=== PATIENT | male | born 1955 | race Caucasian/White ===

== ENCOUNTER 2020-03-24 00:26 | Outpatient (CLI) | payer OTHER, SELFPAY ==
[2020-03-24 21:18] LABS: SARS-CoV-2 RNA PCR Negative
== END 2020-03-24 00:27 | disposition home or self-care (01) ==
LOC: ANHCOVIDDT 00:27
PROVIDERS: PCP Family Medicine; Visit Provider Internal Medicine Gastroenterology
DX: Z01.812 Encounter for preprocedural laboratory examination (principal); Z20.828 Contact with and (suspected) exposure to other viral communicable diseases
CPT/HCPCS: 87635; C9803; U0003

== ENCOUNTER 2020-03-27 00:09 | Day surgery (SDC) | payer OTHER, SELFPAY ==
[2020-03-20 15:07] VITALS: BMI 26.5
--- NOTE | 2020-03-26 11:49 | P.PNAN_ITS ---
Anes - Initial Pre Proc Eval Procedure: Operation Date: 03/27/20 08:00 Proposed Procedures p Screening Colonoscopy - Jesus Sanchez MD Date/Time: 03/26/20 11:49 Surgeon: Jesus Sanchez MD Pre Op Diagnosis: Neoplasm Screening/ Hx Colon Polyps Patient Data Age: 64 Gender: M Height: 1.78 m Weight: 84 kg Allergies Allergy/AdvReac Type Severity Reaction Status Date / Time Penicillins Allergy Mild Unknown Verified 03/27/20 07:05 Home Medications Medication Instructions Recorded Confirmed Type allopurinol 300 mg tablet 300 mg PO DAILY 05/26/19 03/20/20 History amlodipine 2.5 mg tablet 2.5 mg PO DAILY #90 tablet 12/20/19 03/20/20 Rx lisinopril 20 1 tablet PO DAILY #90 tablet 12/20/19 03/20/20 Rx mg-hydrochlorothiazide 12.5 mg tablet metformin 500 mg tablet 500 mg PO BID #180 tablet 12/20/19 03/20/20 Rx simvastatin 10 mg tablet 10 mg PO DAILY #90 tablet 12/20/19 03/20/20 Rx Patient hx anesthesia problems: none Family hx anesthesia problems: none [facility] Past Medical History Medical History (Updated 03/27/20 @ 07:06 by Bernabe Jean DO) Asthma Essential (primary) hypertension Mixed hyperlipidemia Palpitations Type 2 diabetes mellitus without complications Surgical History Surgical History History of arthroscopy of knee Family History Family History Other No family history of cardiovascular disease Social History Social History Smoking status: Never smoker Alcohol intake: current Living arrangements: with family Gender identity (if verbalized by the patient): Male Spiritual care concerns: No Anes - Eval Final PreProcedure Day of Procedure 03/26/20 11:49 Patient weight: overweight Heart: regular rate and rhythm Lungs: clear to auscultation and normal air movement Airway: Mallampati scale class II Neurological: alert and oriented Last oral intake: >/= 8 hours ASA classification: III Emergent: no Anesthetic plan: proceed Anesthesia type and monitoring: general GIVS and standard monitoring Informed Consent: The patient's anesthetic plan and its attendant risks and benefits were discussed with the patient/family/POA. Questions were solicited and answers provided to the satisfaction of the patient/family/POA.
[2020-03-27 07:05] LABS: Glucose Point of Care 133 (65-105)
[2020-03-27 07:06] VITALS: BP 153/86; PULSE 72; RESP 16; TEMP 36.2; O2SAT 100; BMI 27.1
[2020-03-27] MEDS: LACTATED RINGERS 1,000 ML 150 ML IV CONT (07:11)
--- NOTE | 2020-03-27 07:51 | WPDGICN ---
Assessment and Plan Assessment and plan (1) Encounter for screening colonoscopy: Code(s): Z12.11 - Encounter for screening for malignant neoplasm of colon Status: Acute Assessment and Plan: plan is for screening colonoscopy. There is a concern is father may have had colon cancer. High fiber supplements are encourage for this patient GI Consult Note Consult date/time: 03/27/20 07:51 HPI: Andrew Long is a 64 year old male Presents for screening colonoscopy. Patient states that his weight appetite bowel movements are normal. Denies any abdominal pain. He has had no bleeding. Patient does have a past history of a diminutive sigmoid colon polyp fulgurated 10 years ago. Family history is significant his brother had ulcerative colitis and required partial colectomy. His father had cancer that involved both the liver and the colon. Review of Systems Review of Systems: All systems reviewed & are unremarkable except as noted in HPI and below PMFSH Past Medical History Medical History (Updated 03/27/20 @ 07:54 by Jesus Sanchez MD) Asthma Essential (primary) hypertension Mixed hyperlipidemia Palpitations Type 2 diabetes mellitus without complications Surgical History Surgical History History of arthroscopy of knee Family History Family History Other No family history of cardiovascular disease Social History Social History Smoking status: Never smoker Alcohol intake: current Living arrangements: with family Gender identity (if verbalized by the patient): Male Spiritual care concerns: No Meds Home Medications and Allergies Home Medications Medication Instructions Recorded Confirmed Type allopurinol 300 mg tablet 300 mg PO DAILY 05/26/19 03/20/20 History amlodipine 2.5 mg tablet 2.5 mg PO DAILY #90 tablet 12/20/19 03/20/20 Rx lisinopril 20 1 tablet PO DAILY #90 tablet 12/20/19 03/20/20 Rx mg-hydrochlorothiazide 12.5 mg tablet metformin 500 mg tablet 500 mg PO BID #180 tablet 12/20/19 03/20/20 Rx simvastatin 10 mg tablet 10 mg PO DAILY #90 tablet 12/20/19 03/20/20 Rx Allergies Allergy/AdvReac Type Severity Reaction Status Date / Time Penicillins Allergy Mild Unknown Verified 03/27/20 07:05 Vital Signs Vital Signs - 24 hr 03/27/20 07:06 Temperature 97.2 F L Pulse Rate 72 Respiratory Rate 16 Blood Pressure 153/86 H Pulse Oximetry 100 Exam Narrative: Exam Narrative: Physical exam reveals patient to be alert. Vital signs stable. HEENT exam unremarkable. Lungs are clear to auscultation and percussion. Heart is without murmur or extra sounds. Abdominal exam bowel sounds are present soft nontender with no organomegaly. Digital external rectal exam is normal
[2020-03-27 08:22] VITALS: BP 129/84; PULSE 74; RESP 22; O2SAT 99
[2020-03-27 08:32] VITALS: BP 127/90; PULSE 74; RESP 17; O2SAT 99
[2020-03-27 08:41] VITALS: BP 137/89; PULSE 73; RESP 17; O2SAT 96
== END 2020-03-27 08:50 | disposition home or self-care (01) ==
PROVIDERS: PCP Family Medicine; Visit Provider Internal Medicine Gastroenterology
PROC: 0DJD8ZZ Inspection of Lower Intestinal Tract, Via Natural or Artificial Opening Endoscopic (ICD-10-PCS; CPT 45378; principal; 2020-03-27 08:00)
DX: Z12.11 Encounter for screening for malignant neoplasm of colon (principal); K63.5 Polyp of colon; K64.8 Other hemorrhoids; I10 Essential (primary) hypertension; E78.5 Hyperlipidemia, unspecified; J45.909 Unspecified asthma, uncomplicated; E11.9 Type 2 diabetes mellitus without complications; Z79.84 Long term (current) use of oral hypoglycemic drugs
CPT/HCPCS: 45385; 88305; J2704; J7120

== ENCOUNTER 2020-11-11 01:51 | Emergency (ER) | payer MEDICARE, SELFPAY ==
--- NOTE | ~2020-11-11 | CT_ITS ---
EXAMINATION: CT abdomen pelvis wo con DATE: 11/11/2020 02:43 INDICATION: Right flank pain TECHNIQUE: Computed tomography (CT) of the abdomen and pelvis was performed without intravenous contr ast. The dose-length product (DLP) was 261.46 mGy-cm. Automated exposure control and iterative recons truction technique were employed. COMPARISON: None FINDINGS: Minimal dependent atelectasis is present in the lung bases. The heart size is normal. There is an 8 mm cyst of the left hepatic lobe. The spleen, pancreas, gallbladder, and adrenal glands are normal. There is a 3 mm stone of the right mid ureter which causes mild right hydroureteronephrosis. There are two nonobstructing stones of the right kidney which measure 3 mm. There is a 1.7 cm exophyt ic cyst of the right kidney. There is a 7 mm cyst of the left kidney upper pole. No pathologically en larged abdominal or pelvic lymph nodes are identified. There is no free intraperitoneal gas or eviden ce of bowel obstruction. The appendix is normal. There is a small fat-containing umbilical hernia. Se azeem spondylosis is noted in the L5-S1. IMPRESSION: 1. 3 mm stone of the right mid ureter causing mild right hydroureteronephrosis. 2. Nonobstructing right nephrolithiasis. Reviewed, dictated and finalized at location A.
[2020-11-11 01:54] VITALS: BP 207/87; PULSE 60; RESP 18; TEMP 36.5; O2SAT 99
[2020-11-11] MEDS: SODIUM CHLORIDE 0.9% IV 1,000 ML 999 ML IV CONT (02:26)
[2020-11-11] MEDS: ONDANSETRON INJ 4 MG/2 ML VIAL IV PUSH (02:26)
[2020-11-11] MEDS: KETOROLAC 30 MG/ML VIAL (*BKC) IV PUSH (02:26)
[2020-11-11] MEDS: MORPHINE SULFATE (*CRX) 4 MG/ML INJ IV PUSH (03:52)
--- NOTE | 2020-11-11 03:59 | PC.NURSE ---
Patient aware of need for urine specimen. Patient attempting at this time.
[2020-11-11 04:06] VITALS: BP 155/77; PULSE 66; RESP 18; O2SAT 97
[2020-11-11 04:40] LABS: Add Urine Microscopic? YES; Appearance Urine Cloudy (Clear); Bilirubin Urine Negative (Negative); Blood Urine 3+ (Negative); Color Urine Yellow (Yellow); Glucose Urine UA Negative (Negative); Ketones Urine Trace mg/dL (Negative); Leukocyte Esterase Ur Negative LEU/UL (Negative); Mucus Urine Rare /lpf; Nitrate Urine Negative (Negative); Protein Urine 1+ mg/dL (Negative); RBC Urine >75 /hpf (0-2); Specific Grav Ur 1.023 (1.001-1.035); Squamous Epithelial Cell Urine Rare /hpf (Few); Urobilinogen Urine Negative mg/dL (<2.0); WBC Urine 0-3 /hpf
--- NOTE | 2020-11-11 04:52 | ED.GENADULT ---
HPI - General Adult General Chief complaint: Abdominal Pain Stated complaint: lower back pain, abd pain Time Seen by Provider: 11/11/20 01:54 History of Present Illness HPI narrative: Patient is a 65-year-old male who presents ER with right-sided flank pain. Wrapping around his abdomen and going into his testicle. Mild nausea and some sweats. Urinary frequency noted. No history of kidney stone. Related Data Allergies Allergy/AdvReac Type Severity Reaction Status Date / Time Penicillins Allergy Mild Unknown Verified 11/11/20 01:59 Review of Systems Review of Systems: All systems reviewed & are unremarkable except as noted in HPI and below Gastrointestinal: Gastrointestinal: Reports abdominal pain and Reports nausea Genitourinary: Genitourinary: Denies hematuria, Denies dysuria and Reports urinary frequency Comments: Flank pain PMFSH Past Medical History Medical History Asthma Essential (primary) hypertension Mixed hyperlipidemia Palpitations Type 2 diabetes mellitus without complications Surgical History Surgical History History of arthroscopy of knee Family History Family History Other No family history of cardiovascular disease Social History Social History Alcohol intake: current Gender identity (if verbalized by the patient): Male Spiritual care concerns: No Exam Narrative: Exam Narrative: GENERAL: Well-appearing, well-nourished, and in no acute distress. HEAD: Normocephalic, atraumatic. ENT: Mucous membranes moist. CHEST: Clear to auscultation. No respiratory distress. HEART: Regular rate and rhythm. Normal peripheral pulses. ABDOMEN: Soft, nontender, nondistended. EXTREMITIES: Normal range of motion. No edema. SKIN: Warm, dry, no rash. NEURO: Alert and oriented x3. PSYCH: Normal mood and affect. Course Course Emergency Course: Patient improving with Toradol and morphine. Informed results. Discharge home. Vital Signs Vital signs: Vital Signs Temperature 97.7 F 11/11/20 01:54 Pulse Rate 60 11/11/20 01:54 Respiratory Rate 18 11/11/20 01:54 Blood Pressure 207/87 H 11/11/20 01:54 Pulse Oximetry 99 11/11/20 01:54 Temperature 97.7 F 11/11/20 01:54 Pulse Rate 66 11/11/20 04:06 Respiratory Rate 18 11/11/20 04:06 Blood Pressure 155/77 H 11/11/20 04:06 Pulse Oximetry 97 11/11/20 04:06 Medical Decision Making Vital Signs Vital Signs: Vital Signs Temperature 97.7 F 11/11/20 01:54 Pulse Rate 60 11/11/20 01:54 Respiratory Rate 18 11/11/20 01:54 Blood Pressure 207/87 H 11/11/20 01:54 Pulse Oximetry 99 11/11/20 01:54 Temperature 97.7 F 11/11/20 01:54 Pulse Rate 66 11/11/20 04:06 Respiratory Rate 18 11/11/20 04:06 Blood Pressure 155/77 H 11/11/20 04:06 Pulse Oximetry 97 11/11/20 04:06 Lab Data Labs: Lab Results 11/11/20 Range/Units 04:06 Urine Color Yellow (Yellow) Urine Appearance Cloudy H (Clear) Urine pH 5.0 (5.0-9.0) Ur Specific Taylor 1.023 (1.001-1.035) Urine Protein 1+ H (Negative) mg/dL Urine Glucose (UA) Negative (Negative) mg/dL Urine Ketones Trace (Negative) mg/dL Ur Blood (Man) 3+ H (Negative) Urine Nitrate Negative (Negative) Urine Bilirubin Negative (Negative) Urine Urobilinogen Negative (<2.0) mg/dL Leukocyte Esterase Rfl Negative (Negative) JOSE E/UL Urine RBC >75 H (0-2) /hpf Urine WBC 0-3 /hpf Ur Squamous Epith Cells Rare (Few) /hpf Hyaline Casts 3-4 H (None) /lpf Urine Mucus Rare /lpf Imaging Data Radiologist's impression: CT abdomen pelvis without contrast: 4 mm calculus in the mid right ureter. Discharge Plan Discharge Clinical Impression: Ureterolithiasis Patient Disposition: Home, Self
== END 2020-11-11 05:07 | disposition home or self-care (01) ==
PROVIDERS: Emergency Provider Emergency Medicine; PCP Family Medicine
DX: N20.1 Calculus of ureter (principal); J45.909 Unspecified asthma, uncomplicated; I10 Essential (primary) hypertension; E78.5 Hyperlipidemia, unspecified; E11.9 Type 2 diabetes mellitus without complications
CPT/HCPCS: 74176; 81001; 96361; 96374; 96375; 99284; J1885; J2270; J2405; J7030

== ENCOUNTER → 2022-04-08 11:11 | Outpatient (CLI) | payer MEDICARE, SELFPAY ==
--- NOTE | ~2022-04-08 | XR_ITS ---
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 RESULT: Lines, tubes, and devices: None. Lungs and pleura: Clear. Cardiomediastinal silhouette: Stable. Other: No acute osseous or upper abdominal finding. IMPRESSION: No acute cardiopulmonary process. Reviewed, dictated and finalized at location K. DRYING MACHINE OPERATOR
== END ==
PROVIDERS: PCP Family Medicine; Visit Provider Family Medicine
DX: J45.909 Unspecified asthma, uncomplicated (principal)
CPT/HCPCS: 71046

== ENCOUNTER 2022-11-18 13:41 | Outpatient (CLI) | payer MEDICARE, SELFPAY ==
--- NOTE | ~2022-11-18 | XR_ITS ---
EXAMINATION: XR lumbar spine min 4V DATE: 11/18/2022 13:56 INDICATION: Low back pain TECHNIQUE: Anteroposterior, lateral, and bilateral oblique views of the lumbar spine, and cone-down l ateral view of the lumbosacral junction were obtained. COMPARISON: None. FINDINGS: There are 3 mm of anterolisthesis of L4 on L5. The vertebral body heights are maintained. S mall degenerative osteophytes project from the anterior endplates of multiple vertebral bodies. There is no fracture. There is moderate facet joint osteoarthritis of the lower lumbar spine. There is mod erate loss of intervertebral disc space height at L5-S1. IMPRESSION: 1. Mild to moderate lumbar spondylosis without acute findings. Reviewed, dictated and finalized at location L.
== END 2022-11-18 13:42 ==
PROVIDERS: PCP Family Medicine; Visit Provider Family Medicine
DX: M54.50 Low back pain, unspecified (principal); M54.30 Sciatica, unspecified side; M43.06 Spondylolysis, lumbar region
CPT/HCPCS: 72110

== ENCOUNTER 2023-04-13 13:09 | Emergency (ER) | payer MEDICARE, SELFPAY ==
--- NOTE | 2023-04-13 13:11 | ED.UPPEXIN ---
HPI - Extremity Injury (Upper) General Chief Complaint: Extremity Injury, Upper Stated Complaint: Shoulder pain Time Seen by Provider: 04/13/23 13:11 Source: patient Mode of arrival: ambulatory Limitations: no limitations History of Present Illness HPI narrative: Patient is a 67-year-old male who presents with left shoulder pain after doing yard work 4 days ago. Patient states he he had not done a lot of physical labor in several weeks prior. Patient reports pain is worse in the morning and has been taking ibuprofen and Flexeril with moderate relief. Patient reports increased pain with internal rotation. Denies any weakness, numbness, tingling. Patient still able to lift arm straight up. Related Data Allergies Allergy/AdvReac Type Severity Reaction Status Date / Time Penicillins Allergy Mild Unknown Verified 04/13/23 13:21 Review of Systems Review of Systems: All systems reviewed & are unremarkable except as noted in HPI and below Constitutional: Constitutional: Denies body ache(s), Denies chills, Denies fatigue, Denies fever(s), Denies headache(s), Denies malaise and Denies weakness Eyes: Eyes: Denies blurry vision, Denies irritation and Denies loss of vision ENT: Denies otalgia, Denies headache(s), Denies nasal discharge, Denies sinus pain and Denies sore throat Cardiovascular: Cardiovascular: Denies chest pain, Denies irregular heart rhythm and Denies dyspnea Respiratory: Respiratory: Denies dyspnea Gastrointestinal: Gastrointestinal: Denies abdominal pain, Denies melena, Denies hematochezia, Denies diarrhea, Denies nausea and Denies vomiting Musculoskeletal: Musculoskeletal: Denies back pain, Denies myalgias and Reports arthralgias Integumentary/Breasts: Skin/Breast: Denies pruritus and Denies rash Neurologic: Denies headache(s), Denies loss of vision and Denies weakness Psychiatric: Psychiatric: Reports no additional psychiatric complaints Endocrine: Endocrine: Denies fatigue PMFSH Past Medical History Medical History Asthma Essential (primary) hypertension Mixed hyperlipidemia Palpitations Type 2 diabetes mellitus without complications Surgical History Surgical History History of arthroscopy of knee Family History Family History Other No family history of cardiovascular disease Social History Social History Smoking status: Never smoker Alcohol intake: current Substance use: never Substance use type: does not use Lack of Transportation: No Lack of Food: Never True Current Housing: I Have Housing Concerned About Future Housing: No Difficulty Paying Gas/Electric Bills: No Difficulty Paying for Meds: No Currently Unemployed: No Education: Associate Degree Difficulty w/ Childcare or Family Care: No Living arrangements: with family Gender identity (if verbalized by the patient): Male Spiritual care concerns: No Comments At time of signature, agree with nursing past medical, surgical, social and family history. There is no relevant family history pertinent to the presenting complaint. Exam Const: General: cooperative, healthy appearing, comfortable, no acute distress and well nourished Nutritional Appearance: well nourished Orientation/consciousness: patient oriented x3 Limitations: no limitations HENMT: Head: normal to inspection, normocephalic and atraumatic Ears: hearing grossly normal bilaterally and external ears normal Face/Nose/Sinus: Normal external nose present, normal facial exam and face symmetric Face and sinus: normal facial exam and face symmetric Mouth: Yes lip normal Eyes: General: appearance normal, both eyes and all related structures Alignment and Position: alignment normal and position normal Periorbital: periorbital fin
[2023-04-13 13:23] VITALS: BP 166/82; PULSE 83; RESP 16; TEMP 36.6; O2SAT 100
== END 2023-04-13 13:34 | disposition home or self-care (01) ==
PROVIDERS: Emergency Provider Nurse Practitioner Family; PCP Family Medicine
DX: M75.52 Bursitis of left shoulder (principal); J45.909 Unspecified asthma, uncomplicated; I10 Essential (primary) hypertension; E78.2 Mixed hyperlipidemia; E11.9 Type 2 diabetes mellitus without complications
CPT/HCPCS: 99213; G0463

== ENCOUNTER 2023-10-06 08:27 | Outpatient (CLI) | payer MEDICARE, SELFPAY ==
--- NOTE | 2023-10-06 08:35 | EST_ITS ---
Patient Info Name: Andrew Long Age: 68 years : 1955 Gender: Male Ht: 70 in Wt: 184 lbs BSA: 2.04 m2 HR: 72 bpm BP: 161 / 86 mmHg Heart Rhythm: Sinus Rhythm Exam Date: 10/06/2023 8:57 AM Exam Location: [facility] Patient Status: Outpatient Admit Date: 10/06/2023 Staff Ordering Physician: Karen Le Attending Provider: Karen Le Exercise Technologist: Dalia Ventura CT Exercise Physician: Heath Martínez DO Exam Type: CA stress test treadmill Study Info Indications R07.89 - Other chest pain A treadmill exercise stress test was performed. Summary 1. 1. Abnormal Mitch exercise stress test for ischemic ST changes by ECG criteria. 2. 2. Reduced functional capacity, achieving 7 METs of workload. 3. 3. Baseline hypertension with hypertensive response to exercise. 4. 4. Appropriate HR response to exercise. 5. 5. Appropriate HR recovery at 1 minute post exercise. 6. 6. No imaging with stress testing. 7. 7. Patient informed of the above results. 8. 8. PCP informed of the results. Protocol: Mitch Stress ECG Details Stage: REST Duration (min): 7 min : 22 sec Speed (mph): 0.0 Grade (%): 0 HR (bpm): 74 SBP (mmHg): 161 DBP (mmHg): 86 METS: --- Stage: REST Duration (min): 13 min : 18 sec Speed (mph): 0.0 Grade (%): 0 HR (bpm): 74 SBP (mmHg): 161 DBP (mmHg): 86 METS: --- Stage: STAGE 1 Duration (min): 1 min : 0 sec Speed (mph): 1.7 Grade (%): 10 HR (bpm): 104 SBP (mmHg): 161 DBP (mmHg): 86 METS: --- Stage: STAGE 1 Duration (min): 2 min : 0 sec Speed (mph): 1.7 Grade (%): 10 HR (bpm): 117 SBP (mmHg): 161 DBP (mmHg): 86 METS: --- Stage: STAGE 1 Duration (min): 3 min : 0 sec Speed (mph): 1.7 Grade (%): 10 HR (bpm): 117 SBP (mmHg): 211 DBP (mmHg): 75 METS: --- Stage: STAGE 2 Duration (min): 1 min : 0 sec Speed (mph): 2.5 Grade (%): 12 HR (bpm): 123 SBP (mmHg): 211 DBP (mmHg): 75 METS: --- Stage: STAGE 2 Duration (min): 2 min : 0 sec Speed (mph): 2.5 Grade (%): 12 HR (bpm): 129 SBP (mmHg): 222 DBP (mmHg): 74 METS: --- Stage: STAGE 2 Duration (min): 2 min : 6 sec Speed (mph): 2.5 Grade (%): 12 HR (bpm): 130 SBP (mmHg): 222 DBP (mmHg): 74 METS: --- Stage: RECOVERY Duration (min): 0 min : 53 sec Speed (mph): 0.0 Grade (%): 0 HR (bpm): 120 SBP (mmHg): 222 DBP (mmHg): 74 METS: --- Stage: RECOVERY Duration (min): 1 min : 53 sec Speed (mph): 0.0 Grade (%): 0 HR (bpm): 106 SBP (mmHg): 222 DBP (mmHg): 74 METS: --- Stage: RECOVERY Duration (min): 2 min : 53 sec Speed (mph): 0.0 Grade (%): 0 HR (bpm): 97 SBP (mmHg): 215 DBP (mmHg): 80 METS: --- Stage: RECOVERY Duration (min): 3 min : 53 sec Speed (mph): 0.0 Grade (%): 0 HR (bpm): 90 SBP (mmHg): 215 DBP (mmHg): 80 METS: --- Stage: RECOVERY Duration (min): 4 min
== END 2023-10-06 08:28 | disposition home or self-care (01) ==
LOC: ANHCARD 08:27
PROVIDERS: PCP Family Medicine; Visit Provider Nurse Practitioner
DX: R07.9 Chest pain, unspecified (principal)
CPT/HCPCS: 93017

== ENCOUNTER 2024-02-05 10:16 | Outpatient (CLI) | payer MEDICARE, SELFPAY ==
[2024-02-05 13:50] LABS: Basophils Absolute Auto 0.1 K/mm3 (0.0-0.1); Basophils Percent Auto 1.1 % (0.2-1.2); Eosinophils Absolute Auto 0.3 K/mm3 (0-0.3); Eosinophils Percent Auto 3.1 % (0-4.4); Hematocrit 43.1 % (42.0-52.0); Hemoglobin 12.2 g/dL (14.0-18.0); Immature Granulocyte Absolute 0.07 K/mm3 (0.00-0.031); Immature Granulocyte Percent A 0.8 % (0-0.5); Lymphocytes Absolute Auto 1.64 K/mm3 (0.9-3.2); Lymphocytes Percent Auto 18.8 % (18.3-44.2); Mean Corpuscular HGB Conc 28.3 g/dl (32-36); Mean Corpuscular Hemoglobin 19.7 pg (26-34); Mean Corpuscular Volume 69.5 fl (80-100); Mean Platelet Volume 9.3 fl (7.4-10.4); Monocytes Percent Auto 10.9 % (2.6-8.5); Neutrophils Absolute Auto 5.7 K/mm3 (1.3-6.7); Neutrophils Percent Auto 65.3 % (45.5-73.1); Platelet Count Result 445 k/mm3 (150-375); Red Cell Distribution Width 19.9 % (11.5-14.5); White Blood Count 8.7 K/mm3 (4.5-10.0)
[2024-02-05 14:21] LABS: Alanine Aminotransferase 29 U/L (6-50); Albumin Level 4.6 g/dL (3.5-5.1); Alkaline Phosphatase 91 U/L (38-126); Anion Gap 11 mmol/L (4-12); Aspartate Amino Transferase 74 U/L (17-59); Bilirubin,Total 0.5 mg/dL (0.2-1.3); Blood Urea Nitrogen 23 mg/dL (9-20); Calcium 9.7 mg/dL (8.4-10.2); Carbon Dioxide 27 mmol/L (22-30); Chloride 100 mmol/L (98-107); Cholesterol 93 mg/dL (0-200); Estimated Glomerular Filt Rate > 60; Glucose 112 mg/dL (65-110); HDL Direct 44 mg/dL; Potassium 4.6 mmol/L (3.4-5.0); Sodium 138 mmol/L (137-145); Triglycerides 108 mg/dL (<150)
[2024-02-05 14:40] LABS: Platelet Estimate Adequate (Adequate)
[2024-02-05 14:41] LABS: Anisocytosis 1+; Hypochromasia 1+; Ovalocytes 1+; Poikilocytosis 1+; Schistocytes Rare
[2024-02-05 14:47] LABS: LDL Cholesterol Direct < 30 mg/dL
[2024-02-05 14:59] LABS: Hemoglobin A1C 6.9 % (<5.7)
== END 2024-02-05 10:17 | disposition home or self-care (01) ==
PROVIDERS: PCP Family Medicine; Visit Provider Student in an Organized Health Care Education/Training Program
DX: E11.9 Type 2 diabetes mellitus without complications (principal)
CPT/HCPCS: 36415; 80053; 80061; 83036; 84443; 85025

== ENCOUNTER 2024-02-11 10:39 | Outpatient (CLI) | payer MEDICARE, SELFPAY ==
--- NOTE | ~2024-02-11 | XR_ITS ---
XR cervical spine min 6V Ordering provider: Leighann Wright DO History: . No injury, posterior neck pain since 11-28-23 . Comparison: None. FINDINGS: VERTEBRAL BODIES: Normal height and alignment. No visible fracture or subluxation. The dens is intact . Degenerative changes of the spine. DISK SPACES: Narrowing of all the disc spaces in the cervical area. Multilevel facet joint disease. M ultilevel uncovertebral joint osteoarthritic changes. PARASPINOUS SOFT TISSUES: No prevertebral soft tissue swelling. IMPRESSION: No acute osseous abnormality cervical spine. Multilevel degenerative disc disease. Reviewed, dictated and finalized at location A.
== END 2024-02-11 10:40 | disposition home or self-care (01) ==
PROVIDERS: PCP Family Medicine; Visit Provider Family Medicine
DX: M54.2 Cervicalgia (principal)
CPT/HCPCS: 72052

== ENCOUNTER 2024-03-22 09:12 | Emergency (ER) | payer MEDICARE, SELFPAY ==
--- NOTE | 2024-03-22 09:23 | ED.WOUNDLAC ---
HPI - Wound/Laceration General Chief Complaint: Animal Bite Stated Complaint: dog bite/ rt hand Time Seen by Provider: 03/22/24 09:38 Source: patient and RN notes reviewed Mode of arrival: ambulatory Limitations: no limitations History of Present Illness HPI narrative: 60-year-old male presents with concern for a dog bite to his right hand, 2nd digit. Reports his dog bit him this morning. He is up-to-date on his tetanus vaccination, he recently had open heart surgery the last 2 months. Related Data Home Medications Medication Instructions Recorded Confirmed allopurinol 300 mg tablet 300 mg PO DAILY 10/06/23 03/22/24 atorvastatin 40 mg tablet 40 mg PO DAILY 10/26/23 03/22/24 carvedilol 3.125 mg tablet 3.125 mg PO DAILY 02/11/24 03/22/24 aspirin 81 mg capsule 81 mg PO DAILY 03/22/24 03/22/24 Allergies Allergy/AdvReac Type Severity Reaction Status Date / Time Penicillins Allergy Mild Unknown Verified 03/22/24 09:30 Review of Systems Review of Systems: CONSTITUTIONAL: Denies malaise, chills, sweats, or fever. SKIN: Reports laceration to 2nd digit of the right hand MUSCULOSKELETAL: Denies muscle skeletal pain NEUROLOGIC: Denies numbness, weakness All systems reviewed & are unremarkable except as noted in HPI and below PMFSH Past Medical History Medical History Asthma Essential (primary) hypertension Mixed hyperlipidemia Palpitations Type 2 diabetes mellitus without complications Surgical History Surgical History History of arthroscopy of knee Family History Family History Father Hypertension Acute myocardial infarction High cholesterol Cancer Heart disease Sibling Hypertension Acute myocardial infarction Diabetes mellitus High cholesterol Cancer Heart disease Other No family history of cardiovascular disease Social History Social History Smoking status: Never smoker Second hand tobacco smoke exposure: No Alcohol intake: current Substance use: never Substance use type: does not use Lack of Transportation: No Lack of Food: Never True Current Housing: I Have Housing Concerned About Future Housing: No Difficulty Paying Gas/Electric Bills: No Difficulty Paying for Meds: No Currently Unemployed: No Education: Associate Degree Difficulty w/ Childcare or Family Care: No Living arrangements: with family Gender identity (if verbalized by the patient): Male Spiritual care concerns: No Comments At time of signature, agree with nursing past medical, surgical, social and family history. There is no relevant family history pertinent to the presenting complaint Exam Narrative: GENERAL: Well-appearing, well-nourished, and in no acute distress. HEAD: Normocephalic, atraumatic. EYES: PERRLA, conjunctivae clear, and EOMI. ENT: Mucous membranes moist. NECK: Supple. CHEST: Clear to auscultation. No respiratory distress. HEART: Regular rate and rhythm. SKIN: Warm, dry. 1 cm laceration into the subcutaneous tissue noted to the palmar aspect of the foot 2nd digit of the right hand, 1.5 cm laceration into subcutaneous tissue noted to the lateral distal aspect of the 2nd digit of the right hand MUSC: 2nd digit of the right hand has normal strength, sensation, range of motion NEURO: Alert and oriented x3. PSYCH: Normal mood and affect Course Course Emergency Course: Patient is aware of diagnosis, understands and agrees to treatment plan. Anticipatory guidance given. Patient agrees to follow-up as directed and is aware of reasons to seek care at the emergency department. Portions of this record may have been created with voice recognition software Level of Care: Express Care Visit Vital Signs Vital signs: Reviewed. Procedures Laceration Laceration 1: Date: 03/22/24 Time: :48 Site: hand Size (cm): 1 Description: linear Depth: simple, single layer Local Anesthetic: lidocaine 1% Amount of anesthesia used (mL): 1 Pre-repair: wound explored and irrigated extensively ====== Skin Level ====== Skin layer closed with: nylon Size (cm): 4-0 Number of sutures: 2 Technique: simple, interrupted ====== Subcutaneous Layer ====== ====== Muscle Layer ====== ====== Tendon Layer ====== Laceration 2: Date: 03/22/24 Time: 09:48 Site: hand Side (If applicable): right Size (cm): 1.5 Description: irregular Depth: simple, single layer Local Anesthetic: lidocaine 1% Amount of anesthesia used (mL): 1 Pre-repair: wound explored and irrigated extensively ====== Skin Level ====== Skin layer closed with: nylon Size (cm): 4-0 Number of sutures: 2 Technique: simple, interrupted ====== Subcutaneous Layer ====== ====== Muscle Layer ====== ====== Tendon Layer ====== MDM - Wound/Laceration MDM Narrative Medical decision making narrative: Wound explored for foreign body and copious irrigation provided with no evidence of FB. Discussed the potential of retained foreign body with the patient and signs/symptoms that should prompt the patient to immediately go to the ED for reevaluation. There was no evidence of tendon or nerve lacerations. A sterile dressing was then applied and anticipatory guidance was provided. Tetanus prophylaxis was not given Differential Diagnosis Differential diagnosis: Likely laceration, abrasion and avulsion of skin Critical Care Time Critical Care Time Critical Care Time: No Discharge Plan Discharge Clinical Impression: Laceration of finger Patient Disposition: Home, Self-Care Condition: Stable Instructions: Antibiotic Form, Animal Bite (ED) Additional Instructions: Take antibiotic as directed Keep wound clean, and dry. Apply antibiotic ointment twice daily. Cover with bandage as needed to prevent contamination. Clean with soap and water twice daily, but do not soak, take baths, or swim until wound is completely healed. Do not clean with hydrogen peroxide. If any signs of infection such as redness, swelling, increasing pain, drainage of purulent discharge, streaks up your extremity develop, seek medical attention immediately. Followup with your primary care provider in 10 days for suture removal. After sutures are removed, keep your scar out of the sun. You may use OTC silicone pad and/or scar massage with ointment (for 10-15 min a day) after one month. Talk to your doctor if you think you are developing a keloid. Prescriptions: New clindamycin HCl 300 mg capsule 300 mg PO Q8H 7 Days Qty: 21 0RF No Action aspirin 81 mg Capsule 81 mg PO DAILY carvedilol 3.125 mg tablet 3.125 mg PO DAILY cyclobenzaprine 10 mg tablet 10 mg PO TID PRN (Reason: muscle spasm) Qty: 20 0RF atorvastatin 40 mg tablet 40 mg PO DAILY allopurinol 300 mg tablet 300 mg PO DAILY nitroglycerin 0.6 mg tablet, sublingual 0.6 mg sublingual Q5M PRN (Reason: chest pain) Qty: 90 1RF Rx Instructions: do not exceed 3 doses per episode (DME) blood-glucose meter [OneTouch Verio Flex Start] Kit See Rx Instructions .Route Qty: 1 0RF Rx Instructions: Use to check Fasting blood sugar once a day metformin 500 mg tablet See Rx Instructions .ROUTE .COMPLEX Qty: 360 1RF Dose Instruction: 1000 MG ORALLY TWICE A DAY Rx Instructions: 1000 MG ORALLY TWICE A DAY (DME) OneTouch Verio test strips Strip See Rx Instructions .Route Qty: 100 5RF Rx Instructions: daily empagliflozin 10 mg tablet 10 mg PO DAILY Qty: 30 3RF amlodipine 5 mg tablet 5 mg PO DAILY Qty: 90 1RF sertraline 100 mg tablet See Rx Instructions .ROUTE .COMPLEX Qty: 90 0RF Dose Instruction: TAKE 1 TABLET BY MOUTH EVERY DAY Rx Instructions: TAKE 1 TABLET BY MOUTH EVERY DAY Follow-up/Referrals: Leighann Wright DO [Primary Care Provider] - Time of Disposition: 10:18
[2024-03-22 09:34] VITALS: BP 140/88; PULSE 80; RESP 16; TEMP 36.4; O2SAT 100
[2024-03-22 09:41] VITALS: BP 140/88; PULSE 80; RESP 16; TEMP 36.4; O2SAT 100
== END 2024-03-22 10:21 | disposition home or self-care (01) ==
PROVIDERS: Emergency Provider Nurse Practitioner; PCP Family Medicine
DX: S61.210A Laceration without foreign body of right index finger without damage to nail, initial encounter (principal); W54.0XXA Bitten by dog, initial encounter; I10 Essential (primary) hypertension; E78.2 Mixed hyperlipidemia; E11.9 Type 2 diabetes mellitus without complications; J45.909 Unspecified asthma, uncomplicated
CPT/HCPCS: 12002; 99213; G0463; J2003

== ENCOUNTER 2024-03-25 09:15 | Outpatient (RCR) | payer MEDICARE, SELFPAY ==
--- NOTE | 2024-03-01 12:53 | OPREHPOC ---
Outpatient Therapy Plan of Care This is a Multidisciplinary Plan of Care that may contain components documented by all disciplines (PT, OT, and ST.) PT Problem 1 PT Problem #1 Knowledge Deficit PT Goal 1 Goal / Goal Update [place] with HEP Target Visit 4 PT Goal 2 Goal / Goal Update Improve franky cervical rotation to 55+ degrees to improve facet glide and field of vision Target Visit 8 PT Problem 2 PT Problem #2 Impaired Range of Motion PT Goal 1 Goal / Goal Update Improve cervical extension to 40 degrees to improve facet glide and reduce impingement with functional extension Target Visit 8 PT Problem 3 PT Problem #3 Impaired Strength PT Goal 1 Goal / Goal Update Improve left shoulder external rotation strength to 4+/5 to improve stability with ADLs Target Visit 8 PT Goal 2 Goal / Goal Update Improve L shoulder flexion strength to 4/5 to assist with active lifting and object manipulation Target Visit 8
--- NOTE | 2024-03-01 12:53 | PTOPEVAL1 ---
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 Reports that he had multiple stents in his neck leading increased cervical strain. History of left shoulder surgery as well for the removal of a ganglion cyst. Also had a sub acromial decompression. He has had a lot of stiffness and it has made it difficult to drive. Reports that he has difficulty sleeping secondary to neck positioning. Denies pain radiating into his arms but does report some pain in the left shoulder. He is right handed. Reported Pain Level Pain Score 2: Self Report Assessment PT Clinical Summary Patient presents with signs and symptoms consistent with cervical stenosis and radiculopathy. He also demonstrates significant weakness in left rotator cuff leading to pain and instability. Patient will benefit from skilled therapy to address these deficits for gross functional improvement and pain relief. Plan of Care Interventions Electrical Stimulation,Hot Pack/Cold Pack,Manual Therapy,Neuro Re-education,Therapeutic Activities, Therapeutic Exercise PT Services Indicated Yes Treatment Frequency and 1-2x/week for 8 visits Duration These treatments will address the objective and functional deficits as defined above. The patient will be advanced safely and appropriately in order for the patient to progress towards his/her prior level of function. Additional exercises will be introduced and as well as a comprehensive home exercise program upon discharge, if needed, ?to ensure carryover of functional gains achieved in the clinic. This treatment plan has been reviewed and agreement upon by the patient.
--- NOTE | 2024-03-25 11:05 | PTOPDC ---
Assessment and note entered by Genaro Lawson, PT Evaluation Information Assessment Status Discharge ICD-10 Condition Codes (PT) Cervicalgia M54.2 Onset November 2023 Subjective Information Reports that he has noted significant improvement in the neck and shoulder pain at this time. He has integrated some weight lifting back into his life and improved his muscle tone in his shoulders. He no longer has the pain around the vertebra that he had for so long. He has not been taking any pain medication. No longer hampered by pain but still has some stiffness. Reports that sleeping is much better. Reported Pain Level Pain Score 0: Self Report Assessment PT Clinical Summary Patient has made excellent progress in cervical ROM, shoulder strength, and shoulder ROM. Overall has made excellent progress in objective measures and subjective improvement. Suitable for discharge to [facility] at this time. Plan of Care PT Services Indicated Yes
== END 2024-03-25 13:12 | disposition home or self-care (01) ==
LOC: ANHGOSHPT 09:15
PROVIDERS: PCP Family Medicine; Visit Provider Family Medicine
DX: M54.2 Cervicalgia (principal)
CPT/HCPCS: 97014; 97110; 97140; 97161; 97530; G0283

== ENCOUNTER 2024-04-01 11:26 | Emergency (ER) | payer MEDICARE, SELFPAY ==
[2024-04-01 11:48] VITALS: BP 151/97; PULSE 85; RESP 16; TEMP 36.4; O2SAT 100
--- NOTE | 2024-04-01 11:48 | ED.WOUNDLAC ---
HPI - Wound/Laceration General Chief Complaint: Wound/Laceration Stated Complaint: suture removal Time Seen by Provider: 04/01/24 11:55 Source: patient Mode of arrival: ambulatory Limitations: no limitations History of Present Illness HPI narrative: Andrew is a 60-year-old male patient presenting to the clinic today for a suture removal to his right distal 3rd finger. He reports 10 days ago he was bit by dog and had stitches placed. Is finished with his antibiotic. Related Data Home Medications Medication Instructions Recorded Confirmed atorvastatin 40 mg tablet 40 mg PO DAILY 10/26/23 04/01/24 carvedilol 3.125 mg tablet 3.125 mg PO DAILY 02/11/24 04/01/24 aspirin 81 mg capsule 81 mg PO DAILY 03/22/24 04/01/24 Allergies Allergy/AdvReac Type Severity Reaction Status Date / Time Penicillins Allergy Mild Unknown Verified 04/01/24 11:48 Review of Systems Review of Systems: Pertinent positives per HPI. Patient denies any fever, chills, rash, headache, visual changes, dizziness, cough, runny nose, sore throat, shortness of breath, chest pain, palpitations, nausea, vomiting, diarrhea, constipation, abdominal pain, or any urinary issues. [facility] Past Medical History Medical History Asthma Essential (primary) hypertension Mixed hyperlipidemia Palpitations Type 2 diabetes mellitus without complications Surgical History Surgical History History of arthroscopy of knee Family History Family History Father Hypertension Acute myocardial infarction High cholesterol Cancer Heart disease Sibling Hypertension Acute myocardial infarction Diabetes mellitus High cholesterol Cancer Heart disease Other No family history of cardiovascular disease Social History Social History Smoking status: Never smoker Second hand tobacco smoke exposure: No Alcohol intake: current Substance use: never Substance use type: does not use Lack of Transportation: No Lack of Food: Never True Current Housing: I Have Housing Concerned About Future Housing: No Difficulty Paying Gas/Electric Bills: No Difficulty Paying for Meds: No Currently Unemployed: No Education: Associate Degree Difficulty w/ Childcare or Family Care: No Living arrangements: with family Gender identity (if verbalized by the patient): Male Spiritual care concerns: No Comments At the time of my signature, I reviewed and agree with the nursing past medical, surgical, social, and family history. There is no relevant family history pertinent to the patient complaint. Exam Narrative: General: Well-developed, well nourished, in no apparent distress Head: Normocephalic, atraumatic. Cardio: Regular rate and rhythm, s1 and s2 normal, no murmur appreciated. Resp: Clear to auscultation bilaterally, no rhonchi, rales, wheezing or rubs. Integumentary: [place], warm, and dry, 5 sutures removed from the distal right 3rd finger. Wound well healing. No sign of infection Course Course Emergency Course: Portions of this record may have been created with voice recognition software. Level of Care: Express Care Visit Vital Signs Vital signs: Vital Signs Temperature 36.4 C L 04/01/24 11:48 Pulse Rate 85 04/01/24 11:48 Respiratory Rate 16 04/01/24 11:48 Blood Pressure 151/97 H 04/01/24 11:48 Pulse Oximetry 100 04/01/24 11:48 Temperature 36.4 C L 04/01/24 11:49 Pulse Rate 85 04/01/24 11:49 Respiratory Rate 16 04/01/24 11:49 Blood Pressure 151/97 H 04/01/24 11:49 Pulse Oximetry 100 04/01/24 11:49 Vital signs reviewed MDM - Wound/Laceration MDM Narrative Medical decision making narrative: Pertinent positives per HPI. Patient denies any fever, chills, rash, headache, visual changes, dizziness, cough, runny nose, sore throat, shortness of breath, chest pain, palpitations, nausea, vomiting, diarrhea, constipation, abdominal pain, or any urinary issues. Discharge Plan Discharge Clinical Impression: Encounter for removal of sutures Patient Disposition: Home, Self-Care Condition: Stable Instructions: Antibiotic Form, Stitches Removal (ED) Additional Instructions: Sutures removed in the clinic today Follow-up as needed Prescriptions: No Action aspirin 81 mg Capsule 81 mg PO DAILY carvedilol 3.125 mg tablet 3.125 mg PO DAILY cyclobenzaprine 10 mg tablet 10 mg PO TID PRN (Reason: muscle spasm) Qty: 20 0RF atorvastatin 40 mg tablet 40 mg PO DAILY nitroglycerin 0.6 mg tablet, sublingual 0.6 mg sublingual Q5M PRN (Reason: chest pain) Qty: 90 1RF Rx Instructions: do not exceed 3 doses per episode (DME) blood-glucose meter [OneTouch Verio Flex Start] Kit See Rx Instructions .Route Qty: 1 0RF Rx Instructions: Use to check Fasting blood sugar once a day (DME) OneTouch Verio test strips Strip See Rx Instructions .Route Qty: 100 5RF Rx Instructions: daily empagliflozin 10 mg tablet 10 mg PO DAILY Qty: 30 3RF amlodipine 5 mg tablet 5 mg PO DAILY Qty: 90 1RF sertraline 100 mg tablet See Rx Instructions .ROUTE .COMPLEX Qty: 90 0RF Dose Instruction: TAKE 1 TABLET BY MOUTH EVERY DAY Rx Instructions: TAKE 1 TABLET BY MOUTH EVERY DAY metformin 500 mg tablet See Rx Instructions .ROUTE .COMPLEX Qty: 360 1RF Dose Instruction: 1000 MG ORALLY TWICE A DAY Rx Instructions: 1000 MG ORALLY TWICE A DAY allopurinol 300 mg tablet 300 mg PO DAILY Qty: 90 1RF Follow-up/Referrals: Leighann Wright DO [Primary Care Provider] - Time of Disposition: 11:49 Quality NIHSS Nursing Documentation ED NIHSS nursing documentation: reviewed/agree
[2024-04-01 11:49] VITALS: BP 151/97; PULSE 85; RESP 16; TEMP 36.4; O2SAT 100
== END 2024-04-01 12:02 | disposition home or self-care (01) ==
PROVIDERS: Emergency Provider Nurse Practitioner Family; PCP Family Medicine
DX: S61.212D Laceration without foreign body of right middle finger without damage to nail, subsequent encounter (principal); W54.0XXD Bitten by dog, subsequent encounter; I10 Essential (primary) hypertension; E78.2 Mixed hyperlipidemia; E11.9 Type 2 diabetes mellitus without complications; J45.909 Unspecified asthma, uncomplicated; Z79.82 Long term (current) use of aspirin
CPT/HCPCS: 99211; G0463

== ENCOUNTER 2024-04-04 12:30 | Outpatient (RCR) | payer MEDICARE, SELFPAY ==
[2024-01-08 15:33] VITALS: BP 136/80; PULSE 105; RESP 16; O2SAT 97
[2024-01-08 15:39] VITALS: PULSE 105
== END 2024-04-04 15:09 | disposition home or self-care (01) ==
LOC: ANHCPREHAB 12:30
PROVIDERS: PCP Family Medicine
DX: Z95.1 Presence of aortocoronary bypass graft (principal)
CPT/HCPCS: 93798

== ENCOUNTER 2024-04-18 11:07 | Outpatient (CLI) | payer MEDICARE, SELFPAY ==
[2024-04-18 19:37] LABS: Hemoglobin 14.6 g/dL (14.0-18.0); Mean Corpuscular HGB Conc 30.4 g/dl (32-36); Mean Corpuscular Hemoglobin 22.5 pg (26-34); Mean Corpuscular Volume 74.1 fl (80-100); Mean Platelet Volume 9.4 fl (7.4-10.4); Platelet Count Result 300 k/mm3 (150-375); Red Blood Count 6.48 M/mm3 (4.6-6.20); White Blood Count 8.2 K/mm3 (4.5-10.0)
[2024-04-18 20:19] LABS: Iron 56 ug/dL (49-181)
[2024-04-18 20:41] LABS: Percent Iron Saturation 14 % (20-50)
== END 2024-04-18 11:08 | disposition home or self-care (01) ==
LOC: ANHGOSHLAB 11:10
PROVIDERS: PCP Family Medicine; Visit Provider Family Medicine
DX: D64.9 Anemia, unspecified (principal)
CPT/HCPCS: 36415; 83540; 83550; 85027

== ENCOUNTER 2024-05-10 10:15 | Outpatient (CLI) | payer MEDICARE, SELFPAY ==
[2024-05-10 12:28] LABS: Alanine Aminotransferase 29 U/L (6-50); Albumin Level 4.3 g/dL (3.5-5.1); Alkaline Phosphatase 89 U/L (38-126); Anion Gap 3 mmol/L (4-12); Aspartate Amino Transferase 34 U/L (17-59); Bilirubin,Total 0.5 mg/dL (0.2-1.3); Blood Urea Nitrogen 22 mg/dL (9-20); Calcium 9.5 mg/dL (8.4-10.2); Carbon Dioxide 30 mmol/L (22-30); Chloride 106 mmol/L (98-107); Estimated Glomerular Filt Rate > 60; Glucose 148 mg/dL (65-110); Potassium 4.4 mmol/L (3.4-5.0); Sodium 139 mmol/L (137-145)
== END 2024-05-10 10:16 | disposition home or self-care (01) ==
PROVIDERS: PCP Family Medicine; Visit Provider Family Medicine
DX: R41.3 Other amnesia (principal); I10 Essential (primary) hypertension; F41.9 Anxiety disorder, unspecified; F34.1 Dysthymic disorder; E78.2 Mixed hyperlipidemia; E11.9 Type 2 diabetes mellitus without complications; E66.3 Overweight; D64.9 Anemia, unspecified
CPT/HCPCS: 36415; 80053; 82607; 84443

== ENCOUNTER 2024-05-23 10:56 | Outpatient (RCR) | payer MEDICARE, SELFPAY ==
--- NOTE | 2024-05-23 12:43 | PTOPEVDC ---
Assessment and note entered by Checo Hernandez, PT, DPT Thank you for referring Andrew Long to [facility].? An evaluation has been completed. No further treatment is needed. Evaluation Information Assessment Status Evaluation Diagnosis L knee pain ICD-10 Condition Codes (PT) Pain in left knee M25.562 Subjective Information Pt states he stepped off the treadmill at the gym and felt a twinge in his knee. He states after that he got bruising and swelling in his knee instantly. Went to the ED they drained fluid off his knee and told him he has advanced arthritis. Ortho told him he likely tore his meniscus. He got a cortisone shot that helped with some pain and swelling. He reports L lateral thigh pain, that increases with activity. Pain has not limited his mobility. Pt reports a 85% return to his prior level of function. Reported Pain Level Pain Score 2: Self Report Assessment PT Clinical Summary Pt presents to therapy today with a diagnosis of acute L knee pain, injury happening ~1 month ago. Today pt demonstrates good LE ROM and strength throughout his L knee. He demonstrates decreased flexibility of his hip flexors and ITB bilaterally . Pt reports 80-90% return to his baseline in his L knee, with the most difficulty on stairs. An HEP was issued today and pt plans to continue this IND. No skilled therapy services are indicated at this time. Plan of Care PT Services Indicated No Treatment Frequency and evaluate and discharge Duration
== END 2024-05-23 13:53 | disposition home or self-care (01) ==
LOC: ANHGOSHPT 10:56
PROVIDERS: PCP Family Medicine; Visit Provider Family Medicine Sports Medicine
DX: M17.12 Unilateral primary osteoarthritis, left knee (principal)
CPT/HCPCS: 97110; 97161; 97530

== ENCOUNTER 2024-10-11 09:13 | Outpatient (CLI) | payer MEDICARE, SELFPAY ==
--- OUTSIDE RECORDS SUMMARY | 2024-10-11 09:31 | XMS_ITS | Clinical Summary ---
Author Organization [facility] Address [address] [place] [id number] Care Team Providers Care Skid Machine Operator Name Role Phone Unavailable Primary Care Provider Unavailabl e Immunizations Immunization Administration Dates Next Due Covid-19, Mrna, Lnp-s, Pf, 30 Mcg/0.3 Ml Dose (P fizer) 02/15/2021 Social History Tobacco Use Types Packs/Day Years Used Date Smoking Tobacco: Never Assessed Sex and Gender Information Value Date Recorded Sex Assigned at Not on file Legal Sex Male 8:49 PM CDT Gender Identity Not on file Sexual Orientation Not on file Plan of Treatment Health Maintenance Due Date Last Done Comments Hepatitis C Virus (HCV) Screening 1955 TdaP Immunization 1955 Colonoscopy 08/31/2000 Colorectal Cancer Screening 08/31/2000 Cologuard 08/31/2005 Immunochemical Fecal Occult Blood 08/31/2005 Pneumococcal Immunization (5 0+ years) (1 of 1 - PCV) 08/31/2005 Zoster Immunization (1 of 2) 08/31/2005 PSA Discussion 08/31/2010 Influenza Immunization (#1) 2024 SARS-COV-2 Immunization ( season) 2024 02/15/2021, 07/26/2020, 07/05/2020 Respiratory Syncytial Virus (RSV) Immunization (Adult) (1 - 1-dose 75+ series) 08/31/2030 Hepatitis B Immunization Aged Out No longer eligible based on patient's age to complete this topic Meningococcal Immunization (ACWY) Aged Out No longer eligible b ased on patient's age to complete this topic Rotavirus Immunization Aged Out No lo nger eligible based on patient's age to complete this topic
--- OUTSIDE RECORDS SUMMARY | 2024-10-11 09:31 | XMS_ITS | Referral Summary ---
Author Organization [facility] Address [address] [place] [address] Care Team Providers Care Office Messenger Helper Name Role Phone Leighann Wright DO Primary Care Provider [phone]- [phone] Allergies Active Allergy Reactions Criticality Noted Date Comments Penicillins Rash Medium 12/06/2023 Medications allopurinoL (ZYLOPRIM) 300 mg tablet Take 1 tablet (300 mg total) by mouth daily 12/07/2023 Active carvediloL (COREG) 3.125 mg tablet Take 1 tablet (3.125 mg total) by mouth 2 (two) times a day with meals 12/07/2023 Active amLODIPine (NORVASC) 5 mg tablet Take 1 tablet (5 mg total) by mouth daily 02/12/2024 Active atorvastatin (LIPITOR) 40 mg tablet Take 1 tablet (40 mg total) by mouth daily 04/09/2024 Active OneTouch Verio test strips strip 1 each by other route as directed 01/20/2024 Active cyclobenzaprine (FLEXERIL) 10 mg tablet Take 1 tablet (10 mg total) by mouth daily as needed 02/12/2024 Active Jardiance 10 mg tablet Take 1 tablet (10 mg total) by mouth daily 04/11/2024 Active metFORMIN (GLUCOPHAGE) 500 mg tablet Take 1 tablet (500 mg total) by mouth 2 (two) times a day with meals 04/08/2024 Active nitroglycerin (NITROSTAT) 0.[address] 1 tablet (0.6 mg total) under the tongue every 5 (five) minutes as needed 03/28/2024 Active sertraline (ZOLOFT) 100 mg tablet Take 1 tablet (100 mg total) by mouth daily 03/25/2024 Active Active Problems No known active problems Social History Tobacco Use Types Packs/Day Years Used Date Smoking Tobacco: Never Smokeless Tobacco: Never Tobacco Cessation:Counseling Given: No AUDIT-C Answer Date Recorded Q1: How often do you have a drink containing alc ohol? 2-4 times a month 04/28/2024 Q2: How many drinks containi ng alcohol do you have on a typical day when you are drinking? 1 or 2 04/28/2024 Q3: How often do you have si x or more drinks on one occasion? 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 Gender Identity Not on file Sexual Orientation Not on file Last Filed Vital Signs Vital Sign Reading Time Taken Comments Blood Pressure 153/72 04/28/2024 10:40 AM INSOLE DEPARTMENT WORKER Pulse 77 04/28/2024 10:40 AM INSOLE DEPARTMENT WORKER Temperature - - Respiratory Rate 16 04/28/2024 10:40 AM INSOLE DEPARTMENT WORKER Oxygen Saturation - - Inhaled Oxygen Concentration - - Weight 81.2 kg (179 lb 1.6 oz) 04/28/2024 10:40 AM INSOLE DEPARTMENT WORKER Height 177.8 cm (5' 10) 04/28/2024 10:40 AM INSOLE DEPARTMENT WORKER Body Mass Index 25.7 04/28/2024 10:40 AM INSOLE DEPARTMENT WORKER Plan of Treatment Not on file Insurance MEDICARE [facility] SENIOR SUPPLEMENT Care Teams Office Messenger Helper Relationship Specialty Start Date End Date Leighann Wright DO [facility] [address] [place] [address] [place] [id number] PCP - General Family Medicine 10/07/23
--- OUTSIDE RECORDS SUMMARY | 2024-10-11 09:31 | XMS_ITS | Clinical Summary ---
Author Organization [facility] Address [address] [place] [address] Care Team Providers Care Superintendent Meters Name Role Phone Leighann Wright DO Primary Care Provider [phone]- [phone] Allergies Active Allergy Reactions Criticality Noted Date [...] Active Active Problems No known active problems Surgical History Surgery Date Site/Laterality Comments ARTERIAL BYPASS SURGERY IR ASPIRATION KNEE LEFT Medical History Medical History Date Comments Diabetes mellitus (HCC) Hypertension Family History Medical History Relation Name Comments No Known Problems Brother No Known Problems Father No Known Problems Mother No Known Problems Sister Relation Name Status Comments Brother Alive Father Mother Sister Alive Social History Tobacco Use Types Packs/Day Years [...] on file Legal Sex Male 12:52 PM SURGICAL INSTRUMENT TECHNICIAN Gender Identity Not on file Sexual Orientation Not on file Obstetrics History Last Filed Vital Signs Vital Sign Reading Time Taken Comments Blood Pressure 153/72 04/28/2024 10:40 AM SURGICAL INSTRUMENT TECHNICIAN Pulse 77 04/28/2024 10:40 AM SURGICAL INSTRUMENT TECHNICIAN Temperature - - Respiratory Rate 16 04/28/2024 10:40 AM SURGICAL INSTRUMENT TECHNICIAN Oxygen Saturation - - Inhaled Oxygen Concentration - - Weight 81.2 kg (179 lb 1.6 oz) 04/28/2024 10:40 AM SURGICAL INSTRUMENT TECHNICIAN Height 177.8 cm (5' 10) 04/28/2024 10:40 AM SURGICAL INSTRUMENT TECHNICIAN Body Mass Index 25.7 04/28/2024 10:40 AM SURGICAL INSTRUMENT TECHNICIAN Plan of Treatment Health Maintenance Due Date Last Done Comments Colon Cancer Screening-Colonoscopy 1955 Depression Screening 1955 Fall Risk Assessment 1955 Hepatitis C Screening 1955 Prostate Cancer Screening-PSA 1955 Hepatitis B Screening 08/31/1973 Well Visit 65+ 08/31/2020 Covid-19 Vaccine (2023-2 5 season) 2024 02/13/2024, 02/02/2023, 02/15/2021, Additional history exists DTaP/Tdap/Td Vaccine (2 - Td or Tdap) 12/03/2031 12/02/2021 Zoster Vaccine Completed 09/05/2021, 03/14/2021 Pneumococcal vaccine 65+ Completed 04/08/2022, 09/08 Influenza Vaccine Completed 02/13/2024, , 03/27/2022, Additional history exists Insurance MEDICARE [employer] SENIOR SUPPLEMENT Care Teams Superintendent Meters Relationship Specialty Start Date End Date Leighann Wright DO [id number] [facility] [address] [id number] PCP - General Family Medicine 10/07/23
[2024-10-11 11:13] LABS: Hematocrit 51.8 % (42.0-52.0); Hemoglobin 16.3 g/dL (14.0-18.0); Mean Corpuscular HGB Conc 31.5 g/dl (32-36); Mean Corpuscular Hemoglobin 27.4 pg (26-34); Mean Corpuscular Volume 87.1 fl (80-100); Mean Platelet Volume 9.3 fl (7.4-10.4); Platelet Count Result 275 k/mm3 (150-375); Red Blood Count 5.95 M/mm3 (4.6-6.20); Red Cell Distribution Width 14.6 % (11.5-14.5); White Blood Count 7.5 K/mm3 (4.5-10.0)
[2024-10-11 12:46] LABS: Creatinine Urine 15.1 mg/dL
[2024-10-11 12:51] LABS: MALB Creatinine Ratio 57.6 mg/g (0-30); Microalbumin Urine Random 8.7 mg/L (0-16.7)
[2024-10-11 13:14] LABS: Prostate Specific Antigen 2.7 ng/mL (< OR = 4.0)
[2024-10-11 14:07] LABS: Alanine Aminotransferase 38 U/L (6-50); Albumin Level 4.7 g/dL (3.5-5.1); Alkaline Phosphatase 78 U/L (38-126); Anion Gap 8 mmol/L (4-12); Aspartate Amino Transferase 69 U/L (17-59); Bilirubin,Total 0.5 mg/dL (0.2-1.3); Blood Urea Nitrogen 25 mg/dL (9-20); Calcium 9.9 mg/dL (8.4-10.2); Carbon Dioxide 30 mmol/L (22-30); Chloride 100 mmol/L (98-107); Cholesterol 138 mg/dL (0-200); Estimated Glomerular Filt Rate > 60; Glucose 125 mg/dL (65-110); HDL Direct 49 mg/dL; Potassium 4.8 mmol/L (3.4-5.0); Sodium 138 mmol/L (137-145); Total Protein 7.6 g/dL (6.3-8.2); Triglycerides 112 mg/dL (<150)
[2024-10-11 14:17] LABS: LDL Cholesterol Direct 49 mg/dL
== END 2024-10-11 09:14 | disposition home or self-care (01) ==
PROVIDERS: PCP Family Medicine; Visit Provider Family Medicine
DX: E11.9 Type 2 diabetes mellitus without complications (principal); Z12.5 Encounter for screening for malignant neoplasm of prostate; E78.2 Mixed hyperlipidemia; I10 Essential (primary) hypertension; R41.3 Other amnesia; F41.9 Anxiety disorder, unspecified; F34.1 Dysthymic disorder; E66.3 Overweight; D64.9 Anemia, unspecified
CPT/HCPCS: 36415; 80053; 80061; 82043; 82607; 82728; 83036; 84153; 84443; 85027; G0103

== ENCOUNTER 2025-01-17 00:15 | Day surgery (SDC) | payer MEDICARE, SELFPAY ==
[2025-01-04 16:01] VITALS: BMI 24.4
[2025-01-17 06:42] VITALS: BP 178/84; PULSE 72; RESP 18; TEMP 36.1; O2SAT 100; BMI 24.5
--- NOTE | 2025-01-17 07:01 | WPDANESEPPF ---
Anes - Initial Pre Proc Eval Procedure: Operation Date: 01/17/25 08:00 Proposed Procedures p Screening Colonoscopy - Shade Hay MD Date/Time: 01/17/25 07:01 Surgeon: Shade Hay MD Pre Op Diagnosis: Personal history of colon polyps, unspecified Patient Data Age: 69 Gender: M Height: 1.78 m Weight: 77.5 kg Last Vital Signs Temp 36.1 C L 01/17/25 06:42 Pulse 72 01/17/25 06:42 Resp 18 01/17/25 06:42 BP 178/84 H 01/17/25 06:42 Pulse Ox 100 01/17/25 06:42 O2 Del Method Room Air 01/17/25 06:42 Allergies Allergy/AdvReac Type Severity Reaction Status Date / Time Penicillins Allergy Mild Unknown Verified 01/17/25 06:55 Home Medications ?Medication ?Instructions ?Recorded ?Confirmed ?Type nitroglycerin 0.6 mg sublingual 0.6 mg sublingual Q5M PRN chest 10/06/23 01/04/25 Rx tablet pain #90 tabs blood-glucose meter (OneTouch #1 ea 10/12/23 01/04/25 Rx Verio Flex Start kit) atorvastatin 40 mg tablet 40 mg PO DAILY 10/26/23 01/17/25 History aspirin 81 mg capsule 81 mg PO DAILY 03/22/24 01/17/25 History blood sugar diagnostic (OneTouch #100 ea 05/24/24 01/04/25 Rx Verio test strips) empagliflozin 10 mg tablet 10 mg PO DAILY #30 tabs 09/29/24 01/17/25 Rx sertraline 100 mg tablet 150 mg (1.5 x 100 mg) .Route 10/04/24 01/17/25 Rx .COMPLEX 90 days #135 tabs carvedilol 3.125 mg tablet 6.25 mg PO DAILY 10/13/24 01/17/25 History allopurinol 300 mg tablet See Rx Instructions .Route 10/31/24 01/17/25 Rx .COMPLEX #90 tabs amlodipine 5 mg tablet 5 mg PO DAILY #90 tabs 11/07/24 01/17/25 Rx metformin 500 mg tablet See Rx Instructions .Route 11/14/24 01/17/25 Rx .COMPLEX #360 tabs Patient hx anesthesia problems: none Family hx anesthesia problems: none Results Review: All pre-operative results and documents have been reviewed as part of the pre-operative evaluation. [facility]LY [facility] Past Medical History Medical History Asthma Essential (primary) hypertension Mixed hyperlipidemia Palpitations Type 2 diabetes mellitus without complications Surgical History Surgical History (Updated 01/17/25 @ 07:01 by Benjamin Dominguez MD) Hx of CABG History of arthroscopy of knee Family History Family History Father Hypertension Acute myocardial infarction High cholesterol Cancer Heart disease Sibling Hypertension Acute myocardial infarction Diabetes mellitus High cholesterol Cancer Heart disease Other No family history of cardiovascular disease Social History Social History Smoking status: Never smoker Second hand tobacco smoke exposure: No Alcohol intake: current Drinks per week: 4 Substance use: never Substance use type: does not use Lack of Transportation: No Lack of Food: Never True Current Housing: I Have Housing Concerned About Future Housing: No Difficulty Paying Gas/Electric Bills: No Difficulty Paying for Meds: No Currently Unemployed: No Education: Associate Degree Difficulty w/ Childcare or Family Care: No Living arrangements: with family Gender identity (if verbalized by the patient): Male Spiritual care concerns: No Anes - Eval Final PreProcedure Day of Procedure 01/17/25 07:01 Patient weight: normal Heart: regular rate and rhythm Lungs: clear to auscultation Airway: Mallampati scale class II Neurological: alert and oriented Last oral intake: >/= 8 hours ASA classification: III Emergent: no Anesthetic plan: proceed Anesthesia type and monitoring: general GIVS and standard monitoring Results Review: All pre-operative results and documents have been reviewed as part of the pre-operative evaluation. Informed Consent: The patient's anesthetic plan and its attendant risks and benefits were discussed with the patient/family/POA. Questions were solicited and answers provided to the satisfaction of the patient/family/POA.
[2025-01-17] MEDS: LACTATED RINGERS 1,000 ML 150 ML IV CONT (07:10)
--- NOTE | 2025-01-17 07:48 | PM.HPGS ---
History of Present Illness History of Present Illness Consent: Risks, benefits, and alternatives have been discussed and questions answered. Patient agrees to proceed with procedure. Chief complaint: Personal history of colon polyps, unspecified Narrative: Andrew Long is a 69 year old male with colon polyp in 2019 Review of Systems Review of Systems: All systems reviewed & are unremarkable except as noted in HPI and below PMFSH Past Medical History Medical History Asthma Essential (primary) hypertension Mixed hyperlipidemia Palpitations Type 2 diabetes mellitus without complications Surgical History Surgical History (Updated 01/17/25 @ 07:01 by Benjamin Dominguez MD) Hx of CABG History of arthroscopy of knee Family History Family History Father Hypertension Acute myocardial infarction High cholesterol Cancer Heart disease Sibling Hypertension Acute myocardial infarction Diabetes mellitus High cholesterol Cancer Heart disease Other No family history of cardiovascular disease Social History Social History Smoking status: Never smoker Second hand tobacco smoke exposure: No Alcohol intake: current Drinks per week: 4 Substance use: never Substance use type: does not use Lack of Transportation: No Lack of Food: Never True Current Housing: I Have Housing Concerned About Future Housing: No Difficulty Paying Gas/Electric Bills: No Difficulty Paying for Meds: No Currently Unemployed: No Education: Associate Degree Difficulty w/ Childcare or Family Care: No Living arrangements: with family Gender identity (if verbalized by the patient): Male Spiritual care concerns: No Meds Home Medications and Allergies Home Medications ?Medication ?Instructions ?Recorded ?Confirmed ?Type nitroglycerin 0.6 mg sublingual 0.6 mg sublingual Q5M PRN chest 10/06/23 01/04/25 Rx tablet pain #90 tabs blood-glucose meter (OneTouch #1 ea 10/12/23 01/04/25 Rx Verio Flex Start kit) atorvastatin 40 mg tablet 40 mg PO DAILY 10/26/23 01/17/25 History aspirin 81 mg capsule 81 mg PO DAILY 03/22/24 01/17/25 History blood sugar diagnostic (OneTouch #100 ea 05/24/24 01/04/25 Rx Verio test strips) empagliflozin 10 mg tablet 10 mg PO DAILY #30 tabs 09/29/24 01/17/25 Rx sertraline 100 mg tablet 150 mg (1.5 x 100 mg) .Route 10/04/24 01/17/25 Rx .COMPLEX 90 days #135 tabs carvedilol 3.125 mg tablet 6.25 mg PO DAILY 10/13/24 01/17/25 History allopurinol 300 mg tablet See Rx Instructions .Route 10/31/24 01/17/25 Rx .COMPLEX #90 tabs amlodipine 5 mg tablet 5 mg PO DAILY #90 tabs 11/07/24 01/17/25 Rx metformin 500 mg tablet See Rx Instructions .Route 11/14/24 01/17/25 Rx .COMPLEX #360 tabs Allergies Allergy/AdvReac Type Severity Reaction Status Date / Time Penicillins Allergy Mild Unknown Verified 01/17/25 06:55 Vital Signs Vital Signs - 24 hr 01/17/25 06:42 Temperature 97.0 F L Pulse Rate 72 Respiratory Rate 18 Blood Pressure 178/84 H Pulse Oximetry 100 Oxygen Delivery Room Air Exam Const: General: comfortable and no acute distress HENMT: Face/Nose/Sinus: Normal nares present Eyes: General: appearance normal, both eyes and all related structures Neck: Neck: no JVD Resp: Auscultation: clear to auscultation bilaterally Cardio: Rate: regular rate Rhythm: regular rhythm GI: Inspection: non-distended GI Palp: Yes Soft to palpation Skin: General skin exam: normal color Neuro: Speech: normal speech Extrem: General: normal to inspection Psych: Mental Status: mental status grossly normal Assessment and Plan Assessment and plan (1) Colon polyps: Code(s): K63.5 - Polyp of colon Status: Acute Assessment and Plan: colonoscopy
[2025-01-17 08:08] VITALS: BP 109/73; PULSE 64; RESP 18; O2SAT 97
[2025-01-17 08:18] VITALS: BP 114/74; PULSE 65; RESP 15; O2SAT 97
[2025-01-17 08:28] VITALS: BP 114/65; PULSE 65; RESP 17; O2SAT 97
== END 2025-01-17 08:42 | disposition home or self-care (01) ==
PROVIDERS: PCP Family Medicine; Referring Provider Family Medicine; Visit Provider Internal Medicine Gastroenterology
PROC: 0DJD8ZZ Inspection of Lower Intestinal Tract, Via Natural or Artificial Opening Endoscopic (ICD-10-PCS; CPT 45378; principal; 2025-01-17 08:00)
DX: Z12.11 Encounter for screening for malignant neoplasm of colon (principal); I10 Essential (primary) hypertension; E11.9 Type 2 diabetes mellitus without complications; E78.2 Mixed hyperlipidemia; J45.909 Unspecified asthma, uncomplicated; R00.2 Palpitations; Z79.82 Long term (current) use of aspirin; Z79.84 Long term (current) use of oral hypoglycemic drugs; Z98.890 Other specified postprocedural states; Z95.1 Presence of aortocoronary bypass graft; Z86.0100 Personal history of colon polyps, unspecified; Z80.9 Family history of malignant neoplasm, unspecified; Z82.49 Family history of ischemic heart disease and other diseases of the circulatory system
CPT/HCPCS: G0105; 82948; J2003; J2704; J7120

== ENCOUNTER 2025-03-16 08:05 | Outpatient (CLI) | payer MEDICARE, SELFPAY ==
[2025-03-16 13:02] LABS: Hematocrit 51.1 % (42.0-52.0); Hemoglobin 16.3 g/dL (14.0-18.0); Mean Corpuscular HGB Conc 31.9 g/dl (32-36); Mean Corpuscular Hemoglobin 28.9 pg (26-34); Mean Corpuscular Volume 90.6 fl (80-100); Platelet Count Result 226 k/mm3 (150-375); Red Blood Count 5.64 M/mm3 (4.6-6.20); White Blood Count 6.9 K/mm3 (4.5-10.0)
[2025-03-16 13:06] LABS: Alanine Aminotransferase 34 U/L (6-50); Albumin Level 4.4 g/dL (3.5-5.1); Alkaline Phosphatase 66 U/L (38-126); Anion Gap 8 mmol/L (4-12); Aspartate Amino Transferase 66 U/L (17-59); Bilirubin,Total 0.5 mg/dL (0.2-1.3); Blood Urea Nitrogen 25 mg/dL (9-20); Calcium 8.9 mg/dL (8.4-10.2); Carbon Dioxide 28 mmol/L (22-30); Chloride 102 mmol/L (98-107); Cholesterol 130 mg/dL (0-200); Estimated Glomerular Filt Rate > 60; Glucose 133 mg/dL (65-110); HDL Direct 44 mg/dL; Iron 102 ug/dL (49-181); Potassium 4.5 mmol/L (3.4-5.0); Sodium 138 mmol/L (137-145); Total Protein 7.1 g/dL (6.3-8.2); Triglycerides 86 mg/dL (<150)
[2025-03-16 13:38] LABS: Thyroid Stimulating Hormone 2.830 uIU/mL (0.465-4.680)
[2025-03-16 13:45] LABS: Percent Iron Saturation 30 % (20-50)
[2025-03-16 14:09] LABS: Ferritin 40.40 ng/mL (11.1-264)
--- OUTSIDE RECORDS SUMMARY | 2025-03-16 17:01 | XMS_ITS | Clinical Summary ---
Author Organization [facility] Address [address] [place] [id number] Care Team Providers Care Consumer Relations Complaint Clerk Name Role Phone Unavailable Primary Care Provider [...] Virus (HCV) Screening 1955 TdaP Immunization 1955 Cologuard 08/31/2000 Colonoscopy 08/31/2000 Colorectal Cancer Screening 08/31/2000 Immunochemical Fecal Occult Blood 08/31/2000 Pneumococcal Immunization (5 0+ years) (1 of 1 - PCV) 08/31/2005 Zoster Immunization (1 of 2) 08/31/2005 Influenza Immunization (#1) 2025 SARS-COV-2 Immunization ( season) 2025 02/15/2021, 07/26/2020, 07/05/2020 Respiratory Syncytial Virus (RSV) Immunization (Adult) (1 - 1-dose 75+ series) 08/31/2030 Hepatitis B Immunization Aged Out No longer eligible based on patient's age to complete this topic Human Papillomavirus (HPV) Immunization Aged Out No longer eligible b ased on patient's age to complete this topic Meningococcal Immunization (ACWY) Aged Out No longer eligible b ased on patient's age to complete this topic Rotavirus Immunization Aged Out No lo nger eligible based on patient's age to complete this topic
--- OUTSIDE RECORDS SUMMARY | 2025-03-16 17:01 | XMS_ITS | Clinical Summary ---
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 Gender Identity Not on file Sexual Orientation Not on file Last Filed Vital Signs Vital Sign Reading Time Taken Comments Blood Pressure 153/72 04/28/2024 10:40 AM SENIOR ANIMATOR Pulse 77 04/28/2024 10:40 AM SENIOR ANIMATOR Temperature - - Respiratory Rate 16 04/28/2024 10:40 AM SENIOR ANIMATOR Oxygen Saturation - - Inhaled Oxygen Concentration - - Weight 81.2 kg (179 lb 1.6 oz) 04/28/2024 10:40 AM SENIOR ANIMATOR Height 177.8 cm (5' 10) 04/28/2024 10:40 AM SENIOR ANIMATOR Body Mass Index 25.7 04/28/2024 10:40 AM SENIOR ANIMATOR Plan of Treatment Health Maintenance Due Date Last Done Comments Colon Cancer Screening-Colonoscopy 1955 Depression Screening 1955 Fall Risk Assessment 1955 Hepatitis C Screening 1955 Prostate Cancer Screening-PSA 1955 Hepatitis B Screening 08/31/1973 Well Visit 65+ 08/31/2020 Covid-19 Vaccine (2024-2 6 season) 2025 02/13/2024, 02/02/2023, 02/15/2021, Additional history exists Influenza Vaccine (#1) 2025 , 02/02/2023, 03/27/2022, Additional history exists DTaP/Tdap/Td Vaccine (2 - Td or Tdap) 12/03/2031 12/02/2021 Zoster Vaccine Completed 09/05/2021, 03/14/2021 Pneumococcal vaccine 65+ Completed 04/08/2022, 09/08 Insurance MEDICARE [employer] S[employer]IOR [employer] Care Teams Director Skills Relationship Specialty Start Date End Date Leighann Wright DO PCP - General Family Medicine 10/07/23
[2025-03-16 22:47] LABS: Hemoglobin A1C 7.2 % (<5.7)
== END 2025-03-16 08:06 | disposition home or self-care (01) ==
PROVIDERS: PCP Family Medicine; Visit Provider Family Medicine
DX: I10 Essential (primary) hypertension (principal); D64.9 Anemia, unspecified; E11.9 Type 2 diabetes mellitus without complications; E78.2 Mixed hyperlipidemia; F41.9 Anxiety disorder, unspecified; E66.3 Overweight; Z68.25 Body mass index [BMI] 25.0-25.9, adult
CPT/HCPCS: 36415; 80053; 80061; 82728; 83036; 83540; 83550; 84443; 85027